=== PATIENT | male | born 1965 | race Caucasian/White ===

== ENCOUNTER 2020-08-24 11:36 | Emergency (ER) | payer OTHER ==
[2020-08-24] MEDS ORDERED: HYDROcodone/Acetaminophen 5/325 mg Tablet ONE (11:58)
[2020-08-24] MEDS ORDERED: Lidocaine 1% 20 ML MDV ONE (11:58)
[2020-08-24] MEDS ORDERED: Bacitracin 1 PK ONE (12:05)
== END 2020-08-24 12:30 | disposition home or self-care (01) ==
LOC: MADERS 11:36
DX: S61.011A Laceration without foreign body of right thumb without damage to nail, initial encounter (principal); I48.91 Unspecified atrial fibrillation; K50.90 Crohn's disease, unspecified, without complications; E05.00 Thyrotoxicosis with diffuse goiter without thyrotoxic crisis or storm; E11.9 Type 2 diabetes mellitus without complications; E78.5 Hyperlipidemia, unspecified; I10 Essential (primary) hypertension; W45.8XXA Other foreign body or object entering through skin, initial encounter
CPT/HCPCS: 12002